=== PATIENT | female | born 1985 ===

== ENCOUNTER 2018-02-23 09:37 | Emergency (ER) | payer OTHER ==
[~2018-02-23] VITALS: Ht 167.6 cm; Wt 78.5 kg
[2018-02-23 10:11] LABS: ABSOLUTE BASOPHIL COUNT 0 /CUMM (0.0-0.2); ABSOLUTE EOSINOPHIL COUNT 0.1 /CUMM (0.0-0.7); ABSOLUTE GRANULOCYTE CT 8.7 /CUMM (1.4-6.5); ABSOLUTE LYMPH COUNT 2.3 /CUMM (1.2-3.4); ABSOLUTE MONOCYTE COUNT 0.8 /CUMM (0.10-0.60); BASOPHIL % 0.3 % (0.0-2.0); EOSINOPHIL % 0.7 % (0-5); HEMATOCRIT 33.5 % (37-47); MEAN CORPUSCULAR HGB 29.7 PG (27.0-31.0); MEAN CORPUSCULAR HGB CONC 33.8 G/DL (33.0-37.0); MEAN CORPUSCULAR VOLUME 87.8 FL (81.0-99.0); MEAN PLATELET VOLUME 8.1 FL (7.4-10.4); RBC DISTRIBUTION WIDTH 12.4 % (11.5-14.5); RED BLOOD CELL CT 3.81 /CUMM (4.20-5.40); WHITE BLOOD CELL COUNT 11.9 /CUMM (4.8-10.8)
[2018-02-23 10:27] LABS: GRANULOCYTE % 73.1 % (42.2-75.2); PLATELET COUNT 231 /CUMM (130-400)
[2018-02-23] MEDS ORDERED: VITAFOL-ONE CA1 EACH PO (10:47)
--- NOTE | 2018-02-23 11:24 | ED GI/GU/ABDOMINAL COMPLAINT ---
History of Present Illness General Chief Complaint: Abdominal Pain/Flank Pain Stated Complaint: KIDNEY STONES, 33 WKS PREG, SENT BY OB FOR EVAL Source: patient, family, old records Exam Limitations: no limitations Vital Signs & Intake/Output Vital Signs & Intake/Output Vital Signs Date Time Temp Pulse Resp B/P B/P Pulse O2 O2 Flow FiO2 Mean Ox Delivery Rate 02/23 1415 98.4 72 18 134/78 98 Room Air 02/23 1126 98.4 76 18 126/88 98 Room Air 02/23 0942 96.8 112 18 135/82 96 Room Air Allergies Coded Allergies: Penicillins (UNKNOWN PER PT 02/23/18) Reconcile Medications Pnv#26/Iron Poly/FA/Dha (Vitafol-One Capsule) 29 MG IRON-1 MG-200 MG CAPSULE 1 CAP PO DAILY BC (Reported) Triage Note: 32 Y/O FEMALE C/O L FLANK PAIN WITH 4 KNOWN KIDNEY STONES PER PT. STATES SHE BEGAN HAVING PAIN THURSDAY WHICH IS PREOGRESSIVELY GOTTEN WORSE. DENIES N/V/D. +HEMATURIA THURSDAY BUT DENIES TODAY. PT 33 WEEKS , EDC 04/15/18, [employer] [facility], DR DOBSON. . PT DENIES ANY OB RELATED COMPLAINTS. Triage Nurses Notes Reviewed? yes LMP (ages 10-50): date (33 weeks ago) ? y Is pt currently ? No Onset: Last week Duration: day(s):, changing over time, continues in ED, waxing and waning Timing: recent history Quality/Severity: sharpness, severe Location: left flank Radiation: no radiation Activities at Onset: rest Prior Abdominal Problems: similar symptoms Past Sexual History: Unobtainable at this time No Modifying Factors: none Associated Symptoms: abdominal pain, loss of appetite, nausea/vomiting HPI: 5 days prior to admission patient complains of left flank pain sharp moderate to severe associate with nausea waxing and waning nonradiating. Prior to admission the patient complains of very severe left flank pain with nausea. She denies fever chills vomiting diarrhea chest pain cough shortness breath headache dysuria rash bleeding. Past History Travel History Traveled to [place] past 21 day No Medical History Any Pertinent Medical History? 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 No Review of Systems Review of Systems Constitutional: Reports: no symptoms. EENTM: Reports: no symptoms. Respiratory: Reports: no symptoms. Cardiovascular: Reports: no symptoms. GI: Reports: see HPI, abdominal pain, nausea. Genitourinary: Reports: see HPI. Musculoskeletal: Reports: no symptoms. Skin: Reports: no symptoms. Neurological/Psychological: Reports: no symptoms. Hematologic/Endocrine: Reports: no symptoms. Immunologic/Allergic: Reports: no symptoms. All Other Systems: Reviewed and Negative Physical Exam Physical Exam General Appearance: well developed/nourished, alert, awake, anxious, severe distress Head: atraumatic, normal appearance Eyes: Bilateral: normal appearance, PERRL, EOMI, normal inspection. Ears, Nose, Throat, Mouth: hearing grossly normal, moist mucous membrane Neck: normal inspection, supple, full range of motion, normal alignment, no midline tenderness Respiratory: normal breath sounds, chest non-tender, no respiratory distress, quiet respiration, lungs clear Cardiovascular: regular rate/rhythm, normal peripheral pulses, norml femoral pulses equa Peripheral Pulses: 4+ carotid (R), 4+ carotid (L) Gastrointestinal: normal bowel sounds, soft, distention Back: normal inspection, normal range of motion Extremities: normal range of motion, no ligament instability Neurologic/Psych: no motor/sensory deficits, awake, alert, oriented x 3, normal gait, normal mood/affect, traveler changer II-XII nml as tested Skin: intact, normal color, warm/dry Core Measures ACS in differential dx? No Sepsis Present: No Sepsis Focused Exam Completed? No Progress Differential Diagnosis: kidney stone, UTI/pyelo Plan of Care: Orders Procedure Date/time Status URINALYSIS 02/23 0953 Complete COMPREHENSIVE METABOLIC PANEL 02/23 09 Complete CBC WITHOUT DIFFERENTIAL 02/23 09 Complete Laboratory Tests 02/23/18 1045: Urine Color STRAW, Urine Clarity CLEAR, Urine pH 7.0, Ur Specific [place] <= 1.005, Urine Protein NEG, Urine Ketones NEG, Urine Nitrite NEG, Urine Bilirubin NEG, Urine Urobilinogen 0.2, Ur Leukocyte Esterase NEG, Ur Microscopic SEDIMENT EXAMINED, Urine RBC RARE, Ur Epithelial Cells RARE, Urine Hemoglobin SMALL H, Urine Glucose NEG 02/23/18 1004: Anion Gap 11, Estimated GFR > 60, BUN/Creatinine Ratio 12.9, Glucose 149 H, Calcium 9.8, Total Bilirubin 0.3, AST 27, ALT 19, Alkaline Phosphatase 102, Total Protein 6.7, Albumin 3.2 L, Globulin 3.5, Albumin/Globulin Ratio 0.9 L, CBC w Diff NO MAN DIFF REQ, RBC 3.81 L, MCV 87.8, MCH 29.7, MCHC 33.8, RDW 12.4 , MPV 8.1, Gran % 73.1, Lymphocytes % 19.0 L, Monocytes % 6.9, Eosinophils % 0.7, Basophils % 0.3, Absolute Granulocytes 8.7 H, Absolute Lymphocytes 2.3, Absolute Monocytes 0.8 H, Absolute Eosinophils 0.1, Absolute Basophils 0 Diagnostic Imaging: Viewed by Me: Ultrasound. Discussed w/RAD: Ultrasound. Radiology Impression: - Redemonstration of bilateral hydronephrosis, similar compared to prior. - Redemonstration of bilateral renal calculi. - Calculus at the left ureterovesical junction measuring 1.3 cm. The ureteral jets were not seen. Initial ED EKG: none Departure Departure Time of Disposition: 1453 Disposition: HOME OR SELF CARE Condition: Stable Clinical Impression Primary Impression: Obstructive uropathy Secondary Impressions: Renal colic on left side Referrals: Hilaria MILNER,Daniele (PCP/Family) Freddie Ghotra MD Call for urology follow up Departure Forms: Customer Survey General Discharge Information Prescriptions: Current Visit Scripts Tamsulosin HCl (Flomax) 1 CAP PO DAILY #15 CAP Ondansetron (Zofran Odt) 1 TAB SL TID PRN nausea #10 TAB Oxycodone HCl/Acetaminophen (Percocet 5-325 MG Tablet) 1-2 TAB PO Q6-PRN PRN severe pain #15 TAB
--- NOTE | 2018-02-23 14:11 | ULTRASOUND REPORT ---
EXAMINATION: US RETROPERITONEAL COMPLETE (RENAL) CLINICAL INFORMATION: Renal colic. Worsening left flank pain. 33 weeks AOG. COMPARISON: Renal ultrasound 02/19/2018. TECHNIQUE: Real-time imaging of the kidneys and bladder. FINDINGS: RIGHT KIDNEY: 11.1 x 5.3 x 5.0 cm (SAG x AP x TRV). The kidney is normal in size, contour, and echogenicity. Renal cortical thickness is normal. Calculi are seen in the inferior pole measuring 1.6 x 0.8 x 1.6 cm in the upper pole measuring 0.6 x 0.6 x 0.8 cm. The degree of hydronephrosis is unchanged compared to prior. LEFT KIDNEY: 12.3 x 6.2 x 5.1 cm (SAG x AP x TRV). The kidney is normal in size, contour, and echogenicity. Renal cortical thickness is normal. Calculi are seen in the upper pole measuring 1.2 x 0.6 x 0.7 cm, in the mid pole measuring 1 x 0.7 x 1.1 cm, and in the inferior pole measuring 1.1 x 0.6 x 1.0 cm. The degree of hydronephrosis is unchanged compared to prior. BLADDER: Well distended. There is an echogenic focus at the left ureterovesical junction measuring 0.9 x 0.7 x 1.3 cm. The ureteral jets were not seen. Prevoid bladder volume is 64 mL. Postvoid bladder volume is 0 mL. The patient is . The heart rate measures 129 bpm. IMPRESSION: - Redemonstration of bilateral hydronephrosis, similar compared to prior. - Redemonstration of bilateral renal calculi. - Calculus at the left ureterovesical junction measuring 1.3 cm. The ureteral jets were not seen.
[2018-02-23 14:15] VITALS: BP 134/78
--- NOTE | 2018-02-23 15:09 | Cons- Urology ---
General Information and HPI Consulting Request Date of Consult: 02/23/18 Requested By: MD David, [facility]- Reason for Consult: left hydro with ureter stone, complicaed by 33week Source of Information: patient, family, old records Exam Limitations: no limitations History of Present Illness: 32-year-old relatively healthy woman presents to the emergency room with severe left renal colic. Renal ultrasound reveals hydronephrosis and left ureter stone of significant size. The pain has been under control with Percocet , and the patient denies any fever or chills nausea or vomiting at this time. Risks benefits and alternatives regarding stent and surgical removal of the stone was discussed with the patient at length. At this point in time, I believe that surgery would result in greater injury to the patient and unborn child, therefore I advised patient against any procedure at this time. Allergies/Medications Allergies: Coded Allergies: Penicillins (UNKNOWN PER PT 02/23/18) Home Med List: Ondansetron (Zofran Odt) 4 MG TAB.RAPDIS 1 TAB SL TID PRN nausea Oxycodone HCl/Acetaminophen (Percocet 5-325 MG Tablet) 5 MG-325 MG TABLET 1-2 TAB PO Q6-PRN PRN severe pain Pnv#26/Iron Poly/FA/Dha (Vitafol-One Capsule) 29 MG IRON-1 MG-200 MG CAPSULE 1 CAP PO DAILY BC (Reported) Tamsulosin HCl (Flomax) 0.4 MG CAP.ER.24H 1 CAP PO DAILY kidney stone Current Medications: Current Medications Sig/Tanner Start time Last Medication Dose Route Stop Time Status Admin Acetaminophen 0 .STK-MED ONE 02/23 1005 DC IV Acetaminophen 1,000 MG ONCE ONE 02/23 1000 DC 02/23 IV 02/23 1001 1006 Morphine Sulfate 0 .STK-MED ONE 02/23 1047 DC .ROUTE Morphine Sulfate 4 MG ONCE ONE 02/23 1045 DC / IV 02/23 1046 1046 Morphine Sulfate 0 .STK-MED ONE 02/23 1005 DC .ROUTE Morphine Sulfate 4 MG ONCE ONE 02/23 1000 DC 02/23 IV 02/23 1001 1006 Ondansetron HCl 0 .STK-MED ONE 02/23 1005 DC .ROUTE Ondansetron HCl 4 MG ONCE ONE 02/23 1000 DC 02/23 IV 02/23 1001 1006 Sodium Chloride 1,000 ML BOLUS ONE 02/23 1000 DC / IV 02/23 1059 1006 Sodium Chloride 1,000 ML BOLUS ONE 02/23 1000 DC 02/23 IV 02/23 1059 1117 Past History Medical History Neurological: NONE EENT: NONE Cardiovascular: NONE Respiratory: NONE Gastrointestinal: NONE Hepatic: NONE Renal: nephrolithiasis Musculoskeletal: NONE Psychiatric: NONE Endocrine: NONE Blood Disorders: NONE 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 Ambulation: independent IADLs Independent: shopping, housework, finances, food prep, telephone, transportation , medication admin. Exam & Diagnostic Data Vital Signs and I&O Vital Signs Date Time Temp Pulse Resp B/P B/P Pulse O2 O2 Flow FiO2 Mean Ox Delivery Rate 02/23 1415 98.4 72 18 134/78 98 Room Air 02/23 1126 98.4 76 18 126/88 98 Room Air 02/23 0942 96.8 112 18 135/82 96 Room Air Intake & Output 02/23 1600 02/23 0800 02/23 0000 02/22 1600 02/22 0800 02/22 0000 Intake Total 0 Output Total Balance 0 Intake, Oral 0 Patient 173 lb Weight Weight Reported by Patient Measurement Method Physical Exam General Appearance: well developed/nourished, no apparent distress Head: atraumatic Eyes: Bilateral: normal appearance. Neck: normal inspection Respiratory: normal breath sounds Cardiovascular: regular rate/rhythm Gastrointestinal: normal bowel sounds, soft Back: CVA tenderness (L) Extremities: normal inspection Cranial Nerves: normal hearing, normal speech Reproductive: 33 week Last 24 Hours of Labs: Laboratory Tests 02/23 02/23 1045 1004 Chemistry Sodium (137 - 145 mmol/L) 137 Potassium (3.5 - 5.1 mmol/L) 4.0 Chloride (98 - 107 mmol/L) 105 Carbon Dioxide (22 - 30 mmol/L) 20 L Anion Gap (5 - 16) 11 BUN (7 - 17 mg/dL) 9 Creatinine (0.5 - 1.0 mg/dL) 0.7 Estimated GFR (>60 ml/min) > 60 BUN/Creatinine Ratio (7 - 25 %) 12.9 Glucose (65 - 99 mg/dL) 149 H Calcium (8.4 - 10.2 mg/dL) 9.8 Total Bilirubin (0.2 - 1.3 mg/dL) 0.3 AST (14 - 36 U/L) 27 ALT (9 - 52 U/L) 19 Alkaline Phosphatase (<127 U/L) 102 Total Protein (6.3 - 8.2 g/dL) 6.7 Albumin (3.5 - 5.0 g/dL) 3.2 L Globulin (1.9 - 4.2 gm/dL) 3.5 Albumin/Globulin Ratio (1.1 - 2.2 %) 0.9 L Hematology CBC w Diff NO MAN DIFF REQ WBC (4.8 - 10.8 /CUMM) 11.9 H RBC (4.20 - 5.40 /CUMM) 3.81 L Hgb (12.0 - 16.0 G/DL) 11.3 L Hct (37 - 47 %) 33.5 L MCV (81.0 - 99.0 FL) 87.8 MCH (27.0 - 31.0 PG) 29.7 MCHC (33.0 - 37.0 G/DL) 33.8 RDW (11.5 - 14.5 %) 12.4 Plt Count (130 - 400 /CUMM) 231 MPV (7.4 - 10.4 FL) 8.1 Gran % (42.2 - 75.2 %) 73.1 Lymphocytes % (20.5 - 51.1 %) 19.0 L Monocytes % (1.7 - 9.3 %) 6.9 Eosinophils % (0 - 5 %) 0.7 Basophils % (0.0 - 2.0 %) 0.3 Absolute Granulocytes (1.4 - 6.5 /CUMM) 8.7 H Absolute Lymphocytes (1.2 - 3.4 /CUMM) 2.3 Absolute Monocytes (0.10 - 0.60 /CUMM) 0.8 H Absolute Eosinophils (0.0 - 0.7 /CUMM) 0.1 Absolute Basophils (0.0 - 0.2 /CUMM) 0 Urines Urine Color (YEL,AMB,STR) STRAW Urine Clarity (CLEAR) CLEAR Urine pH (5.0 - 8.0) 7.0 Ur Specific [place] (1.001 - 1.035) <= 1.005 Urine Protein (NEG,<30 MG/DL) NEG Urine Ketones (NEG) NEG Urine Nitrite (NEG) NEG Urine Bilirubin (NEG) NEG Urine Urobilinogen (0.1 - 1.0 EU/dl) 0.2 Ur Leukocyte Esterase (NEG) NEG Ur Microscopic SEDIMENT EXAMINED Urine RBC (0 - 5 /HPF) RARE Ur Epithelial Cells (NONE,FEW) RARE Urine Hemoglobin (NEG) SMALL H Urine Glucose (N MG/DL) NEG Imaging Results: PATIENT: ALPHONSO CHAWLA PRESENT AGE: 32 PATIENT ACCOUNT NO: [id number] : 83 LOCATION: [facility] ORDERING PHYSICIAN: Jeronimo Greenfield MD SERVICE DATE: 02/23/18 EXAM TYPE: US - US-RENAL/KIDNEY EXAMINATION: US RETROPERITONEAL COMPLETE (RENAL) CLINICAL INFORMATION: Renal colic. Worsening left flank pain. 33 weeks AOG. COMPARISON: Renal ultrasound 02/19/2018. TECHNIQUE: Real-time imaging of the kidneys and bladder. FINDINGS: RIGHT KIDNEY: 11.1 x 5.3 x 5.0 cm (SAG x AP x TRV). The kidney is normal in size, contour, and echogenicity. Renal cortical thickness is normal. Calculi are seen in the inferior pole measuring 1.6 x 0.8 x 1.6 cm in the upper pole measuring 0.6 x 0.6 x 0.8 cm. The degree of hydronephrosis is unchanged compared to prior. LEFT KIDNEY: 12.3 x 6.2 x 5.1 cm (SAG x AP x TRV). The kidney is normal in size, contour, and echogenicity. Renal cortical thickness is normal. Calculi are seen in the upper pole measuring 1.2 x 0.6 x 0.7 cm, in the mid pole measuring 1 x 0.7 x 1.1 cm, and in the inferior pole measuring 1.1 x 0.6 x 1.0 cm. The degree of hydronephrosis is unchanged compared to prior. BLADDER: Well distended. There is an echogenic focus at the left ureterovesical junction measuring 0.9 x 0.7 x 1.3 cm. The ureteral jets were not seen. Prevoid bladder volume is 64 mL. Postvoid bladder volume is 0 mL. The patient is . The heart rate measures 129 bpm. IMPRESSION: - Redemonstration of bilateral hydronephrosis, similar compared to prior. - Redemonstration of bilateral renal calculi. - Calculus at the left ureterovesical junction measuring 1.3 cm. The ureteral jets were not seen. DICTATED BY: Joan Caceres MD DATE/TIME DICTATED:02/23/181400 DRY CLEANING TEACHER:OSCAR DATE/TIME TRANSCRIBED:02/23/181400 CONFIDENTIAL, DO NOT COPY WITHOUT APPROPRIATE AUTHORIZATION. <Electronically signed in Other Vendor System> SIGNED BY: Joan Caceres MD 02/23/18 141 Assessment/Plan Assessment/Plan left jhydro with ureter stone/pain management vs stent (more risky)-if pain in extreme pain/fever will need stent. Copies To: Freddie Ghotra MD Consult Acknowledgment - Thank you for your consult request. Attending Review Statement Attending Statement Attending MD Statement: examined this patient, discuss w/resident/PA/INTERPRETIVE NATURALIST Attending Assessment/Plan: left hydro due to ureter stone: 33 week : pt will wait with main management before any procedure is done.
[2018-02-23] MEDS ORDERED: PERCOCET 5-3251 EACH PO (15:11)
[2018-02-23] MEDS ORDERED: ZOFRAN ODT4 M1 SL (15:11)
[2018-02-23] MEDS ORDERED: FLOMAX0.4 M1 PO (15:11)
== END 2018-02-23 15:17 ==
LOC: ERH 09:37
PROVIDERS: Emergency Medicine
DX: O99.89 Other specified diseases and conditions complicating pregnancy, childbirth and the puerperium (principal); N13.9 Obstructive and reflux uropathy, unspecified; N23 Unspecified renal colic; Z3A.33 33 weeks gestation of pregnancy
CPT/HCPCS: 76775; 81001; 96374; 96375; 96376; J0131; J2405

== ENCOUNTER 2018-04-02 09:40 | Inpatient (IN) | payer OTHER ==
[~2018-04-02] VITALS: Ht 165.1 cm; Wt 86.6 kg
[~2018-04-02 09:40] MED LIST: FLOMAX0.4 M1 PO; PERCOCET 5-3251 EACH PO; VITAFOL-ONE CA1 EACH PO; ZOFRAN ODT4 M1 SL
[2018-04-02 10:29] LABS: ABSOLUTE BASOPHIL COUNT 0 /CUMM (0.0-0.2); ABSOLUTE EOSINOPHIL COUNT 0.1 /CUMM (0.0-0.7); ABSOLUTE GRANULOCYTE CT 7.8 /CUMM (1.4-6.5); BASOPHIL % 0.3 % (0.0-2.0); EOSINOPHIL % 0.7 % (0-5); GRANULOCYTE % 65.5 % (42.2-75.2); HEMATOCRIT 33.3 % (37-47); MEAN CORPUSCULAR HGB 28.9 PG (27.0-31.0); MEAN CORPUSCULAR HGB CONC 32.8 G/DL (33.0-37.0); MEAN CORPUSCULAR VOLUME 88.1 FL (81.0-99.0); MEAN PLATELET VOLUME 9.2 FL (7.4-10.4); PLATELET COUNT 189 /CUMM (130-400); RBC DISTRIBUTION WIDTH 14.1 % (11.5-14.5); RED BLOOD CELL CT 3.78 /CUMM (4.20-5.40)
[2018-04-02 11:50] VITALS: BP 154/108
--- NOTE | 2018-04-02 12:18 | History & Physical ---
General Information and HPI MD Statement: I have seen and personally examined ALPHONSO CHAWLA and documented this H&P. The patient is a 32 year old female at 38 weeks and 1 days gestation who presented with a chief complaint of HIGH BLOOD PRESSURE IN OFFICE . Source of Information: patient, old records Exam Limitations: no limitations History of Present Illness: Pt well known to our practice found to have elevated bp in office 150/104 then on L&D 158/107 pt is asymptomatic PIH labs creatinine 0.7 GFR >60 AST 28 ALT 29 UA 6.2Platlets 189K UTP/CR 1.4 bp responded to IV Labatalol 20mg IVP Cx is 1cm 50% anterior moderate and -1. 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 Last Menstrual Period: 07/09/2017 Estimated Delivery Date: 04/15/2018 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 Cardiovascular: Reports: edema, peripheral edema. Denies: chest pain, palpitations. Respiratory: Denies: cough, short of breath, wheezing. GI: Denies: abdominal pain, nausea, vomiting. Skin: Denies: lesions, rash. Neurological/Psychological: Denies: anxiety, depressed, headache, numbness, paresthesia. Hematologic/Endocrine: Denies: bleeding. Exam & Diagnostic Data Last 24 Hrs of Vital Signs/I&O Intake & Output 04/02 1600 04/02 0800 04/02 0000 Intake Total Output Total Balance Patient 191 lb Weight Obstetric Exam Wgt Gained During : 40lbs Pelvimetry: seems adequate Dilation (cm): 1 Effacement (%): 50 Station: -1 Membranes: unknown Fluid: unknown Fundal Height (cm): 38 Multiple Gestation? No Contractions: Q4 min #1 - FHR Baseline: 145 Category: 1 Estimated Weight: 3800G Presentation: vtx Patient for Induction? Yes Richard Score Richard Score Response Value Cervix Position: mid-position 1 Cervix Consistency: medium 1 Cervix Effacement: 30-50% 1 Cervix Dilation: 1-2 cm 1 Cervix Station: -1 2 Total 6 Physical Exam General Appearance Alert, Oriented X3, Cooperative, No Acute Distress Skin No Rashes HEENT Atraumatic, PERRLA Neck Supple Cardiovascular Regular Rate Lungs Clear to Auscultation Abdomen Normal Bowel Sounds, Soft, No Tenderness Neurological Normal Gait, Normal Speech, DTR's Brisk Extremities 2+ pedal edema Labs Blood Type & Rh: A pos Antibody Screen: neg Hct/Hgb & Platelets #1: 4.08/12.9/259 Hct/Hgb & Platelets #2: 36.2/10.8/213 Rubella: imm VDRL #1: nr VDRL #2: nr HbsAg: neg HIV #1: nr HIV #2 nr 1 Hr P Group B Strep: neg Initial Ultrasound: 10/01/17 12weeks Anatomy Ultrasound: 12/01/2017 Ultrasound for EFW: 03/19/18 31%tile Genetic Testing: normal Last 24 Hrs of Labs/Luis Eduardo: Laboratory Tests 04/02/18 1000: Ur Random Creatinine 50.6, U Random Total Protein 73 H, Protein/Creatinin Ratio 1.4 H 04/02/18 1000: Estimated GFR > 60, Uric Acid 6.2, AST 28, ALT 29, Lactate Dehydrogenase 576, CBC w Diff NO MAN DIFF REQ, RBC 3.78 L, MCV 88.1, MCH 28.9, MCHC 32.8 L, RDW 14.1, MPV 9.2, Gran % 65.5, Lymphocytes % 25.2, Monocytes % 8.3, Eosinophils % 0.7, Basophils % 0.3, Absolute Granulocytes 7.8 H, Absolute Lymphocytes 3.0, Absolute Monocytes 1.0 H, Absolute Eosinophils 0.1, Absolute Basophils 0, Urine Color YEL, Urine Clarity CLEAR, Urine pH 7.0, Ur Specific [place] 1.010, Urine Protein 30 H, Urine Ketones NEG, Urine Nitrite NEG, Urine Bilirubin NEG, Urine Urobilinogen 0.2, Ur Leukocyte Esterase TRACE H, Ur Microscopic SEDIMENT EXAMINED, Urine WBC 1-3 H, Ur Epithelial Cells FEW, Urine Bacteria FEW H, Urine Hemoglobin NEG, Urine Glucose NEG Assessment/Plan Assessment/Plan: PIH plan Labatalol prn pitocin induction consider MgSO4 As Ranked By This Provider Problem List: 1. Core Measures Venous Thromboembolism VTE Risk Factors / No Mechanical VTE Prophylaxis d/t LowRisk-No Interven Req'd No VTE Pharm Prophylaxis d/t LowRisk-No Interven Req'd
== END 2018-04-02 18:30 | disposition short-term general hospital (02) | DRG 781 ==
LOC: CBCO 09:40 → GNO 10:54 → CBCO 04-15 08:00
PROVIDERS: Obstetrics & Gynecology
DX: O16.3 Unspecified maternal hypertension, third trimester (principal); Z3A.38 38 weeks gestation of pregnancy
CPT/HCPCS: GNOP; 36415; 81001; 82570; 86902; 86920; 86922; G0463; J0360; J3475; J7120

== ENCOUNTER 2018-04-29 03:49 | Emergency (ER) | payer OTHER ==
[~2018-04-29] VITALS: Ht 165.1 cm; Wt 72.6 kg
--- NOTE | 2018-04-29 06:10 | ED SKIN/ALLERGY COMPLAINT ---
History of Present Illness General Chief Complaint: Allergy Symptoms Stated Complaint: "HIVES" PER PT Source: patient, old records Exam Limitations: no limitations Vital Signs & Intake/Output Vital Signs & Intake/Output Vital Signs Date Time Temp Pulse Resp B/P B/P Pulse O2 O2 Flow FiO2 Mean Ox Delivery Rate 04/29 0401 98 Room Air 04/29 0357 98.6 103 18 130/84 99 Room Air Allergies Coded Allergies: Penicillins (UNKNOWN PER PT 02/23/18) Reconcile Medications Diphenhydramine HCl (Benadryl Allergy) 25 MG TABLET 1-2 TAB PO Q6P PRN urticaria Famotidine (Pepcid) 20 MG TABLET 1 TAB PO BID urticaria Pnv#26/Iron Poly/FA/Dha (Vitafol-One Capsule) 29 MG IRON-1 MG-200 MG CAPSULE 1 CAP PO DAILY BC (Reported) Prednisone 20 MG TABLET 1 TAB PO BID urticaria Triage Note: PT FROM HOME C/O HIVES TO PTS BILATERAL ARMS, ABD,BACK, BILATERAL LEGS AND NECK SINCE . PT DENIES EATING NEW FOODS, NEW DETERGENTS, LOTIONS OR ANYTHING. PT TOOK BENADRYL CONTINUOUSLY WITH NO RELIEF. PT STATES LAST MEDICATED AT 0300 WITH 2ML OF BENADRYL KIDS (THATS ALL PT HAD IN HOUSE) Triage Nurses Notes Reviewed? yes Onset: 2 days Duration: day(s):, constant, continues in ED Timing: recent history Severity: moderate Location: generalized Possible Factors: no cause identified Modifying Factors: Improves With: antihistamine. Associated Symptoms: hives, rash LMP (ages 10-50): unknown : No Patient currently breastfeeds: Yes HPI: 2 days prior to admission patient complains of urticarial rash generalized improved with Benadryl only to recur. She denies fever chills nausea vomiting diarrhea abdominal pain chest pain shortness of breath headache dysuria bleeding soap shampoo detergent clothes. She was put on nifedipine after delivery 2 weeks ago. Past History Travel History Traveled to [place] past 21 day No Medical History Any Pertinent Medical History? 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 No Review of Systems Review of Systems Constitutional: Reports: no symptoms. EENTM: Reports: no symptoms. Respiratory: Reports: no symptoms. Cardiovascular: Reports: no symptoms. GI: Reports: no symptoms. Genitourinary: Reports: no symptoms. Musculoskeletal: Reports: no symptoms. Skin: Reports: see HPI, rash. Neurological/Psychological: Reports: no symptoms. Hematologic/Endocrine: Reports: no symptoms. Immunologic/Allergic: Reports: no symptoms. All Other Systems: Reviewed and Negative Physical Exam Physical Exam General Appearance: well developed/nourished, alert, awake, anxious, moderate distress Head: atraumatic, normal appearance Eyes: Bilateral: normal appearance, PERRL, EOMI. Ears, Nose, Throat: normal pharynx, normal ENT inspection, hearing grossly normal Neck: normal inspection, supple, full range of motion, no midline tenderness Respiratory: normal breath sounds, chest non-tender, no respiratory distress, quiet respiration, lungs clear Cardiovascular: regular rate/rhythm, normal peripheral pulses, norml femoral pulses equa Peripheral Pulses: 4+ carotid (R), 4+ carotid (L) Gastrointestinal: normal bowel sounds, soft, non-tender, no organomegaly Back: normal inspection, normal range of motion, no vertebral tenderness Extremities: normal inspection, normal capillary refill, normal range of motion, no edema Neurologic/Psych: no motor/sensory deficits, awake, alert, oriented x 3, normal gait, normal mood/affect, 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 Skin: rash Skin Problem Location: generalized Skin Problem Character: urticarial Lymphatic: no anterior cervical amber Progress Differential Diagnosis: abscess/cellulitis, allergic reaction, anaphylaxis, contact dermatitis, drug reaction Plan of Care: follow up today with ob Departure Departure Time of Disposition: 719 Disposition: HOME OR SELF CARE Condition: Stable Clinical Impression Primary Impression: Urticaria Secondary Impressions: Adverse drug reaction Referrals: Daniele Manrique MD (PCP/Family) Departure Forms: Customer Survey General Discharge Information Prescriptions: Current Visit Scripts Prednisone 1 TAB PO BID #10 TAB Diphenhydramine HCl (Benadryl Allergy) 1-2 TAB PO Q6P PRN urticaria #30 TAB Ref 1 Famotidine (Pepcid) 1 TAB PO BID #10 TAB
[2018-04-29] MEDS ORDERED: PREDNISONE20 M1 PO (06:11)
[2018-04-29] MEDS ORDERED: BENADRYL ALLERG25 M2 PO (06:11)
[2018-04-29] MEDS ORDERED: PEPCID20 M1 PO (06:11)
[2018-04-29 07:20] VITALS: BP 117/72
== END 2018-04-29 07:31 ==
LOC: ERH 03:49
DX: L50.0 Allergic urticaria (principal); T50.905A Adverse effect of unspecified drugs, medicaments and biological substances, initial encounter
CPT/HCPCS: 96374; 96375; J1200; J2930